=== PATIENT | male | born 1985 | race Caucasian/White ===

== ENCOUNTER 2016-11-21 11:44 | Emergency (ER) | payer OTHER ==
[2016-11-21 12:03] VITALS: TEMP 97.9
[2016-11-21] MEDS ORDERED: NS 1,000 ML IV ONE (12:27)
--- NOTE | 2016-11-21 12:27 | UCPHY ---
H & P Time Seen by Provider: 11/21/16 12:24 Patient Type: New HPI/ROS: Chief complaint. Lightheaded HPI. 31-year-old male occasionally lightheaded when standing. This been a lifelong problem. It is not associated with exercise but only with getting up quickly. He occasionally he blacks out when standing up too fast. Last symptoms were 1 week ago. He did strike his head. He has been okay the past week however. He has never had a workup so far. No medical problems. ROS Constitutional. no fever/chills, no weakness Eyes. no problems with vision ENT. no sore throat, no nasal drainage Cardiovascular. no chest pain Respiratory. no shortness of breath, no cough Abdominal. no abdominal pain, no nausea/vomiting, no diarrhea . no problems urinating MS. no calf pain/swelling, no neck/back pain, no joint pain Skin. no rash Lymph. no swollen glands Neuro. Near syncope with standing Past Medical/Surgical History: Healthy Family history patient is adopted Social History: Single, nonsmoker, no alcohol Smoking Status: Never smoked Physical Exam: General Appearance: Alert well-developed male no distress vital signs are stable Eyes: Pupils equal and round no pallor or injection. ENT, Mouth: Mucous membranes are moist. Respiratory: There are no retractions, lungs are clear to auscultation. Cardiovascular: Regular rate and rhythm. Gastrointestinal: Abdomen is soft and nontender, no masses, bowel sounds normal. Neurological: Awake and alert, sensory and motor exams grossly normal. Skin: Warm and dry, no rashes. Musculoskeletal: Neck is supple nontender. Extremities symmetrical, full range of motion. Psychiatric: Patient is oriented X 3, there is no agitation. Constitutional: Initial Vital Signs Temperature (C) 36.6 C 11/21/16 11:55 Heart Rate 70 11/21/16 11:55 Respiratory Rate 16 11/21/16 11:55 Blood Pressure 109/77 11/21/16 11:55 O2 Sat (%) 97 11/21/16 11:55 O2 Delivery Mode Room Air Allergies/Adverse Reactions: No Known Allergies Allergy (Unverified 11/21/16 12:03) Medical Decision Making - Diagnostics EKG Interpretation: EKG interpreted by me shows normal sinus rhythm normal interval and axis. QRS is normal there is no significant ST elevation or depression. No evidence for Brugada syndrome. No arrhythmia. The rate is 55 Procedures: IV normal saline patient is given 1 L ED Course/Re-evaluation: On re-evaluation patient is stable. The patient and I discussed lab an EKG findings. We discussed treatment plan including criteria for return importance of follow-up and further evaluation. He expresses understanding and agreement Differential Diagnosis: I considered hypoglycemia, dehydration, cardiac etiology. From review of the patient's lab work I suspect that dehydration may well be an issue as his blood is hemoconcentrated. His blood sugar is also on the low side at 60 He will be given juice in the emergency department - Data Points Laboratory Results: Laboratory Results 11/21/16 12:55 11/21/16 12:55 11/21/16 11/21/16 12:55 12:55 WBC 7.95 10^3/uL 10^3/uL (3.80-9.50) RBC 5.85 10^6/uL 10^6/uL (4.40-6.38) Hgb 18.2 g/dL H g/dL (13.7-17.5) Hct 52.3 % H % (40.0-51.0) MCV 89.4 fL fL (81.5-99.8) MCH 31.1 pg pg (27.9-34.1) MCHC 34.8 g/dL g/dL (32.4-36.7) RDW 12.0 % % (11.5-15.2) Plt Count 272 10^3/uL 10^3/uL (150-400) MPV 9.1 fL fL (8.7-11.7) Neut % (Auto) 61.4 % % (39.3-74.2) Lymph % (Auto) 27.2 % % (15.0-45.0) Mccreary % (Auto) 9.3 % % (4.5-13.0) Eos % (Auto) 0.9 % % (0.6-7.6) Baso % (Auto) 0.4 % % (0.3-1.7) Nucleat RBC Rel Count 0.0 % % (0.0-0.2) Absolute Neuts (auto) 4.89 10^3/uL 10^3/uL (1.70-6.50) Absolute Lymphs (auto) 2.16 10^3/uL 10^3/uL (1.00-3.00) Absolute Monos (auto) 0.74 10^3/uL 10^3/uL (0.30-0.80) Absolute Eos (auto) 0.07 10^3/uL 10^3/uL (0.03-0.40) Absolute Basos (auto) 0.03 10^3/uL 10^3/uL (0.02-0.10) Absolute Nucleated RBC 0.00 10^3/uL 10^3/uL (0-0.01) Immature Gran % 0.8 % % (0.0-1.1) Immature Gran # 0.06 10^3/uL 10^3/uL (0.00-0.10) Sodium 145 mEq/L H mEq/L (134-144) Potassium 4.4 mEq/L mEq/L (3.5-5.2) Chloride 104 mEq/L mEq/L (97-110) Carbon Dioxide 26 mEq/l mEq/l (22-31) Anion Gap 15 mEq/L mEq/L (8-16) BUN 14 mg/dL mg/dL (7-23) Creatinine 0.9 mg/dL mg/dL (0.7-1.3) Estimated GFR > 60 Glucose 60 mg/dL L mg/dL (70-100) Calcium 9.4 mg/dL mg/dL (8.5-10.4) Medications Given: Discontinued Medications Sodium Chloride (Ns) 1,000 mls @ 0 mls/hr IV ONCE ONE PRN Reason: Wide Open Stop: 11/21/16 12:28 Last Admin: 11/21/16 13:03 Dose: 1,000 mls Departure - Departure Disposition: Home, Routine, Self-Care Clinical Impression: Near syncope Condition: Good Instructions: Near Syncope (ED) Additional Instructions: Drink plenty of fluids and stay hydrated. The goal is to keep your urine clear by being so hydrated. Eat regular meals to keep your blood sugar. Return for worsening symptoms. 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 [Primary Care Provider] - As per Instructions Cuong De Los Santos MD [Medical Doctor] - 5-7 days, call for appt. - PQRS PQRS Measurement: 134: Depression screening and followup, PRIME MD-PHQ2 (12 years and older) Over the last 2 weeks, how often have you been bothered by any of the following problems? 1. Feeling down, depressed, or hopeless? 2. Little interest or pleasure in doing things? Patient answered no to both 1 and 2 130: Documentation of medications. Reviewed all patient medications, doses, route and frequency. 226: Do you smoke? No.
[2016-11-21 13:03] LABS: % IMMATURE GRANULYOCYTES 0.8 % (0.0-1.1); ABSOLUTE IMMATURE GRANULOCYTES 0.06 10^3/uL (0.00-0.10); ADD DIFF? NO; ADD MORPH? NO; ADD SCAN? NO; ATYPICAL LYMPHOCYTE FLAG 0 (0-99); FRAGMENT RBC FLAG 0 (0-99); HEMATOCRIT 52.3 % (40.0-51.0); HEMOGLOBIN 18.2 g/dL (13.7-17.5); LEFT SHIFT FLG 0 (0-99); LIPEMIA HEMOLYSIS FLAG 90 (0-99); MEAN CELL HEMOGLOBIN 31.1 pg (27.9-34.1); MEAN CELL HEMOGLOBIN CONCENTR. 34.8 g/dL (32.4-36.7); MEAN CELL VOLUME 89.4 fL (81.5-99.8); MEAN PLATELET VOLUME 9.1 fL (8.7-11.7); PLATELET CLUMPS FLAG 0 (0-99); PLATELET COUNT 272 10^3/uL (150-400); RED BLOOD CELL COUNT 5.85 10^6/uL (4.40-6.38)
[2016-11-21 13:16] LABS: ANION GAP 15 mEq/L (8-16); CALCIUM 9.4 mg/dL (8.5-10.4); CARBON DIOXIDE 26 mEq/l (22-31); CHLORIDE 104 mEq/L (97-110); CREATININE 0.9 mg/dL (0.7-1.3); GLOMERULAR FILTRATION RATE > 60; GLUCOSE 60 mg/dL (70-100); POTASSIUM 4.4 mEq/L (3.5-5.2); SODIUM 145 mEq/L (134-144)
[2016-11-21 14:02] VITALS: BP 141/63; PULSE 72; RESP 18; O2SAT 96
--- NOTE | 2016-11-26 22:57 | CPEKG ---
Heart Rate: 55 RR Interval: 1091 P-R Interval: 148 QRSD Interval: 86 QT Interval: 400 QTC Interval: 383 P [place]: 72 QRS [place]: 34 T Wave [place]: 61 EKG Severity - NORMAL ECG - EKG Impression: SINUS RHYTHM EKG Impression: Possible left atrial abnormality EKG Impression: Short CT interval Electronically Signed By: Ricardo Zarco 27-Nov-2016 14:52:56
== END 2016-11-21 14:11 | disposition home or self-care (01) ==
LOC: CED 11:44
DX: R55 Syncope and collapse (principal)
CPT/HCPCS: 80048-PO; 85025-PO; 93010-PO; 96360-PO; 96361-PO; 99203-PO; G0463-PO